=== PATIENT | male | born 1955 | race Two or more races ===

== ENCOUNTER 2021-04-30 15:13 | Emergency (ER) | payer MEDICAID ==
[~2021-04-30] VITALS: Ht 165.1 cm; Wt 66.7 kg
[2021-04-30 15:49] VITALS: BP 122/71
--- NOTE | 2021-04-30 15:49 | NUR ---
BIBS C/O RT KNEE PAIN P/S 11/04 S/P TRIPPED AND FALL 3DAYS AGO, -LOC, -TRAUMA
[2021-04-30] MEDS ORDERED: KETOROLAC TROMETHAMINE INJ 60 MG/2 ML VIAL IM ONE ×2 (16:15→16:30)
[2021-04-30] MEDS ORDERED: NAPR-1009 PO (16:46)
--- NOTE | 2021-04-30 17:25 | NUR ---
Leo sims in EDM - 04/30/21 at 1725 by MARILIA BIBS C/O RT KNEE PAIN P/S 11/04 S/P TRIPPED AND FALL 3DAYS AGO, -LOC, -TRAUMA
--- NOTE | 2021-04-30 17:29 | NUR ---
Patient discharged to home in stable condition. Written and verbal after care instructions given. Patient verbalizes understanding of instruction.
== END 2021-04-30 17:30 | disposition home or self-care (01) ==
LOC: ER 15:18
DX: S83.8X1A Sprain of other specified parts of right knee, initial encounter (principal); W01.0XXA Fall on same level from slipping, tripping and stumbling without subsequent striking against object, initial encounter; Y93.89 Activity, other specified; Y92.89 Other specified places as the place of occurrence of the external cause; Y99.8 Other external cause status
CPT/HCPCS: 73564; 96372; 99283; J1885